=== PATIENT | female | born 1995 | race Caucasian/White ===

== ENCOUNTER 2020-09-04 11:57 | Emergency (ER) | payer BC ==
[~2020-09-04] VITALS: Ht 157.5 cm; Wt 93.6 kg
[~2020-09-04 11:57] MED LIST: HUMALOG MIX 75/10 ML; IRON325 MG PO; PERCOCET 325 MG1 TA2 PO
[2020-09-04 12:04] VITALS: BP 122/84; TEMP 98.1
[2020-09-04 13:03] LABS: BASO # 0.1 (0.0-0.2); BASO % 0.5 % (0.0-2.0); EOS # 0.1 (0.0-0.7); EOS % 0.5 % (0-4.0); GRAN # 8.7 (1.4-6.5); GRAN % 78.7 % (42.2-75.2); HEMOGLOBIN 13.6 g/dl (12.5-16.0); LYMPH # 1.7 (1.2-3.4); LYMPH % 14.9 % (20.0-51.0); MEAN CELL VOLUME 80 fl (80.0-100.0); MEAN CORPUSCULAR HEMOGLOBIN 26 pg (27.0-31.0); MEAN CORPUSCULAR HGB CONC 32 g/dl (33.0-37.0); MEAN PLATELET VOLUME 9.7 fl (7.4-10.4); MONO # 0.5 (0.1-0.6); MONO % 4.9 % (1.7-9.3); PLATELET COUNT 340 K/mm3 (130-400); RED BLOOD COUNT 5.23 M/mm3 (4.10-5.30)
[2020-09-04 13:15] LABS: ALBUMIN 4.4 gm/dL (3.5-5.0); BILIRUBIN,TOTAL 0.3 mg/dL (0.0-1.0); C-REACTIVE PROTEIN 1.1 mg/dL (0.0-0.9); CALCIUM 9.7 mg/dL (8.4-10.2); CREATININE, serum 0.55 (0.52-1.25); TOTAL PROTEIN 7.9 gm/dL (6.4-8.2)
[2020-09-04 14:06] LABS: COLLECTION METHOD CLEAN CATCH
[2020-09-04 14:20] LABS: PH 6 (5-8); SQUAMOUS EPITHELIAL 0-2 /hpf; URINE APPEARANCE Cloudy; URINE BACTERIA None Seen /hpf; URINE BILIRUBIN Negative (NEGATIVE); URINE BLOOD 3+ (NEGATIVE); URINE COLOR Amber; URINE GLUCOSE Negative (NEGATIVE); URINE KETONE Trace (NEGATIVE); URINE LEUKOCYTE ESTERASE Negative (NEGATIVE); URINE NITRATE Negative (NEGATIVE); URINE PROTEIN(semi-quant) 2+ (NEGATIVE); URINE RBC >50 /hpf; URINE UROBILINOGEN Negative (NEGATIVE)
[2020-09-04] MEDS ORDERED: NORCO 325 MG-51 TAB PO (14:51)
[2020-09-04 15:08] VITALS: PULSE 99
== END 2020-09-04 15:16 | disposition home or self-care (01) ==
LOC: COL.ER 11:57
PROVIDERS: Family Medicine
DX: N13.2 Hydronephrosis with renal and ureteral calculous obstruction (principal); E86.0 Dehydration; E10.9 Type 1 diabetes mellitus without complications; Z79.4 Long term (current) use of insulin
CPT/HCPCS: J1170; J1885; J2405; J7120; Q9967

== ENCOUNTER → 2021-08-10 | Outpatient (CLI) | payer OTHER ==
[~2021-08-10] MED LIST changes: +NORCO 325 MG-51 TAB PO
== END ==
LOC: COL.RAD 08-04 13:30
DX: N85.8 Other specified noninflammatory disorders of uterus (principal); N91.1 Secondary amenorrhea

== ENCOUNTER → 2022-06-08 | Outpatient (CLI) | payer BC | LOC: MHCPAIN 15:13 | DX: M54.2 Cervicalgia (principal); R20.0 Anesthesia of skin; M79.18 Myalgia, other site; M53.3 Sacrococcygeal disorders, not elsewhere classified; E10.9 Type 1 diabetes mellitus without complications | CPT/HCPCS: G0463 ==

== ENCOUNTER → 2023-04-12 | Outpatient (CLI) | payer BC | LOC: MHCPAIN 14:23 | DX: M54.2 Cervicalgia (principal); M79.18 Myalgia, other site; R20.2 Paresthesia of skin; M53.3 Sacrococcygeal disorders, not elsewhere classified | CPT/HCPCS: G0463 ==

== ENCOUNTER → 2023-05-31 | Outpatient (CLI) | payer BC | LOC: COL.RAD 15:45 | DX: R20.2 Paresthesia of skin (principal) ==

== ENCOUNTER → 2023-05-31 | Outpatient (CLI) | payer BC | LOC: MHCPAIN 14:57 | DX: M54.2 Cervicalgia (principal); R20.2 Paresthesia of skin; M25.551 Pain in right hip; M53.3 Sacrococcygeal disorders, not elsewhere classified | CPT/HCPCS: G0463 ==

== ENCOUNTER → 2023-10-18 | Outpatient (CLI) | payer BC | LOC: MHCPAIN 13:04 | DX: M54.2 Cervicalgia (principal); R20.2 Paresthesia of skin; M25.551 Pain in right hip; M53.3 Sacrococcygeal disorders, not elsewhere classified; Z33.1 Pregnant state, incidental | CPT/HCPCS: G0463 ==